=== PATIENT | female | born 1990 | race American Indian/Alaskan Native ===

== ENCOUNTER 2017-07-20 14:43 | Emergency (ER) | payer OTHER ==
[2017-07-20 15:03] VITALS: TEMP 98.5
--- NOTE | 2017-07-20 15:38 | ED PDOC ---
Arrival/HPI - General Chief Complaint: Flu-like Symptoms Time Seen by Provider: 07/20/17 15:24 Historian: Patient - History of Present Illness Narrative History of Present Illness (Text): 07/20/17 15:37 26 y/o female, no significant pmh, nkda, c/o cough x 1 week with runny nose plus fever x 2 days. Pt. has been having dry coughing, associated with the runny nose, tmax unknown as it is subjective fever, afebrile in the ER, no chest pain or shortness of breath, no numbness or tingling, no rash, no other medical or psychological complaints. Past Medical History - Provider Review Nursing Documentation Reviewed: Yes - Psychiatric Hx Psychophysiologic Disorder: No Hx Substance Use: No Family/Social History - Physician Review Nursing Documentation Reviewed: Yes Family/Social History: Unknown Family HX Smoking Status: Never Smoked Hx Alcohol Use: Yes Frequency of alcohol use: Socially Hx Substance Use: No Allergies/Home Meds Allergies/Adverse Reactions: Allergies No Known Allergies Allergy (Verified 07/20/17 14:57) Review of Systems - Review of Systems Constitutional: Fevers. absent: Fatigue Eyes: absent: Vision Changes ENT: Rhinorrhea. absent: Hearing Changes Respiratory: Cough. absent: SOB Cardiovascular: absent: Chest Pain Gastrointestinal: absent: Abdominal Pain, Diarrhea, Nausea, Vomiting Musculoskeletal: absent: Arthralgias, Myalgias Skin: absent: Rash, Pruritis Neurological: absent: Headache, Dizziness Psychiatric: absent: Anxiety, Depression Physical Exam Vital Signs Reviewed: Yes Vital Signs Temp Pulse Resp BP Pulse Ox 07/20/17 16:25 82 18 126/88 99 07/20/17 14:58 98.5 F 88 16 131/95 H 96 Temperature: Afebrile Blood Pressure: Hypertensive Pulse: Regular Respiratory Rate: Normal Appearance: Positive for: Well-Appearing, Non-Toxic, Comfortable Pain Distress: None Mental Status: Positive for: Alert and Oriented X 3 - Systems Exam Head: Present: Atraumatic, Normocephalic Pupils: Present: PERRL Extroacular Muscles: Present: EOMI Conjunctiva: Present: Normal Ears: Present: NORMAL TM, Normal Canal. No: Erythema Mouth: Present: Moist Mucous Membranes Nose (External): Present: Atraumatic. No: Abrasion, Contusion, Laceration, Lesions Nose (Internal): Present: Normal Inspection, No Active Bleeding, Rhinorrhea. No : Septal Hematoma, Epistaxis Neck: Present: Normal Range of Motion, Trachea Midline. No: Meningeal Signs, MIDLINE TENDERNESS, Paraspinal Tenderness, Lymphadenopathy Respiratory/Chest: Present: Clear to Auscultation, Good Air Exchange, Rhonchi ( Rt. mid lobe). No: Respiratory Distress, Accessory Muscle Use, Wheezes, Decreased Breath Sounds, Rales (Rt. lobe), Retracting, Tachypneic, Tender to Palpation Cardiovascular: Present: Regular Rate and Rhythm, Normal S1, S2. No: Murmurs Abdomen: Present: Normal Bowel Sounds. No: Tenderness, Distention, Peritoneal Signs, Rebound, Guarding Back: Present: Normal Inspection Upper Extremity: Present: Normal Inspection. No: Cyanosis, Edema Lower Extremity: Present: Normal Inspection. No: Edema Neurological: Present: GCS=15, Speech Normal, Motor Func Grossly Intact, Gait Normal, Memory Normal Skin: Present: Warm, Dry, Normal Color. No: Rashes Psychiatric: Present: Alert, Oriented x 3, Normal Insight, Normal Concentration Medical Decision Making ED Course and Treatment: 07/20/17 16:00 -Chest xray -Rapid flu -Observe and reasses 07/20/17 17:36 -Influenza is negative. -Urine hcg negative. -Chest xray show rt. lower lobe infiltrate with physical examination crackle noted. -I discussed the side effect of the levaquin including prolong QT and achilles tendon rupture, advised avoid gym and exercise while taking this medication, pt. verbally expressed understanding. -Discharge home with levaquin, promethazine dm, prednisone, stay hydrated, follow up with your own pmd within 2 days, return to the ER for any new or worsening signs or symptoms. - Lab Interpretations Lab Results: Lab Results 07/20/17 15:54: Influenza Typ A,B (EIA) Negative for flu a/b - RAD Interpretation Radiology Orders: 07/20/17 15:57 CHEST TWO VIEWS (PA/LAT) [RAD] Stat - PA / HOME SERVICE DEMONSTRATOR / Resident Statement MD/DO has reviewed & agrees with the documentation as recorded. Disposition/Present on Arrival - Present on Arrival Any Indicators Present on Arrival: No History of DVT/PE: No History of Uncontrolled Diabetes: No Urinary Catheter: No History of Decub. Ulcer: No History Surgical Site Infection Following: None - Disposition Have Diagnosis and Disposition been Completed?: Yes Diagnosis: Pneumonia Disposition: HOME/ ROUTINE Disposition Time: 16:01 Patient Plan: Discharge Patient Problems: Current Active Problems Problem Status Onset URI (upper respiratory infection) Acute Condition: GOOD Additional Instructions: -Discharge home with levaquin, promethazine dm, prednisone, stay hydrated, follow up with your own pmd within 2 days, return to the ER for any new or worsening signs or symptoms. Prescriptions: Levofloxacin [Levaquin] 750 mg PO DAILY #5 tablet Prednisone 50 mg PO DAILY #5 tab Promethazine DM [Phenergan DM Syrup] 5 ml PO QID PRN #250 ml PRN Reason: Other Referrals: [facility] Emma Kessler, [Primary Care Provider] - Follow up with primary [facility] [place] [Outside] - Follow up with primary Forms: [employer] (Khmer), WORK NOTE
[2017-07-20 17:44] VITALS: BP 125/82; PULSE 78; RESP 17; O2SAT 100
--- NOTE | 2017-07-21 09:33 | RAD ---
HISTORY: COMPARISON: No prior. TECHNIQUE: Chest PA and lateral FINDINGS: LINES AND TUBES: None. LUNG AND PLEURA: The lungs are well inflated and clear. Tubular opacities in the lower lobes may represent subsegmental atelectasis or mucus plugging. No focal consolidation. HEART AND MEDIASTINUM: The heart is not enlarged. The hilar and mediastinal contours are within normal limits. SKELETAL STRUCTURES: The bony structures are within normal limits for the patient's age. VISUALIZED UPPER ABDOMEN: Normal. OTHER FINDINGS: None. IMPRESSION: No active pulmonary disease.
== END 2017-07-20 17:58 | disposition home or self-care (01) ==
LOC: ED 14:43
DX: J18.9 Pneumonia, unspecified organism (principal)